=== PATIENT | male | born 1950 | race Caucasian/White ===

== ENCOUNTER 2017-03-23 21:56 | Inpatient (IN) | payer MEDICARE ==
[2017-03-24 00:10] LABS: Comments Flag Yes; Hematocrit 39 % (42-52); Hemoglobin 13.3 g/dl (14.0-18.0); Mean Corpuscular HGB Conc 34 g/dl (31-36); Mean Corpuscular Hemoglobin 32 pg (27-31); Mean Corpuscular Volume 94 fL (80-94); Mean Platelet Volume 8 um3 (7.4-10.4); Red Blood Count 4.21 10^6/ul (4.0-5.4); Red Cell Distribution Width 13 % (10.5-15); White Blood Count 14.5 10^3/ul (3.5-10.8)
[2017-03-24 00:11] LABS: Add Diff/Slide Review? Slide Review Added
[2017-03-24] MEDS ORDERED: ceFAZolin 1 GM ADVAN(*) 1 GM in NS 0.9% 50 ML* 50 ML IVPB ONE (00:16)
--- NOTE | 2017-03-24 00:28 | ED ---
Killian Guido Alfonso, scribed for Shelton Johnson MD on 03/23/17 at 2344 . Lower Extremity - HPI Summary HPI Summary: This patient is a 66 year old M presenting to [facility] accompanied by with a chief complaint of LLE erythema and swelling since 170 this date. Pt is s/p cat scratch at LLE. The CC is described as worsening. Pt rates the pain 5/10 in severity. Symptoms aggravated and alleviated by nothing. Pt reports fever. Denies PMHx of DM. - History of Current Complaint Chief Complaint: EDExtremityLower Stated Complaint: LEFT LEG REDNESS/SWELLING Time Seen by Provider: 03/23/17 23:38 Hx Obtained From: Patient Mechanism Of Injury: Direct Blow - Cat scratch Onset of Pain: Hours - 1700 today Onset/Duration: Worse Since Severity Initially: Moderate Severity Currently: Moderate Pain Intensity: 5 Pain Scale Used: 0-10 Numeric Timing: Constant Location: Is Discrete @ - LLE Associated Signs And Symptoms: Positive: Fever Aggravating Factor(s): Other Alleviating Factor(s): Other - Allergies/Home Medications Allergies/Adverse Reactions: Allergies Allergy/AdvReac Type Severity Reaction Status Date / Time No Known Allergies Allergy Verified 03/23/17 22:07 Home Medications: Home Medications Hydrochlorothiazide TAB* [Hydrodiuril TAB*] 25 mg PO DAILY 03/24/17 [History Confirmed 03/24/17] Lisinopril TAB* [Prinivil TAB*] 20 mg PO DAILY 03/24/17 [History Confirmed 03/24] PMH/Surg Hx/FS Hx/Imm Hx Endocrine/Hematology History: Denies: Hx Diabetes Opthamlomology History: Denies: Hx Legally Blind Infectious Disease History: No Infectious Disease History: Denies: Traveled Outside the [place] in Last 30 Days - Family History Known Family History: Positive: Cardiac Disease - Social History Alcohol Use: None Substance Use Type: Reports: None Smoking Status (MU): Former Smoker Review of Systems Positive: Fever Positive: Other - LLE swelling Positive: Other - LLE erythema All Other Systems Reviewed And Are Negative: Yes Physical Exam Triage Information Reviewed: Yes Vital Signs On Initial Exam: Initial Vitals Temp Pulse Resp BP Pulse Ox 98.6 F 116 20 153/72 95 03/23/17 22:00 03/23/17 22:00 03/23/17 22:00 03/23/17 22:00 03/23/17 22:00 Vital Signs Reviewed: Yes Appearance: Positive: Well-Appearing, No Pain Distress Skin: Positive: Warm, Other - warm erythematous tender lle Head/Face: Positive: Normal Head/Face Inspection Eyes: Positive: ASIF ENT: Positive: Hearing grossly normal Neck: Positive: Supple Respiratory/Lung Sounds: Positive: Breath Sounds Present Cardiovascular: Positive: RRR Abdomen Description: Positive: Nontender, Soft Bowel Sounds: Positive: Present Musculoskeletal: Positive: Strength/ROM Intact Neurological: Positive: Alert, Oriented to Person Place, Time Psychiatric: Positive: Affect/Mood Appropriate - [place] Coma Scale Coma Scale Total: 15 Diagnostics - Vital Signs Vital Signs Temp Pulse Resp BP Pulse Ox 03/23/17 23:32 101.9 F 109 16 139/75 94 03/23/17 22:00 98.6 F 116 20 153/72 95 - Laboratory Result Diagrams: 03/24/17 06:07 03/24/17 06:07 Lab Statement: Any lab studies that have been ordered have been reviewed, and results considered in the medical decision making process. Re-Evaluation - Re-Evaluation First Eval Comment: results d/w pt, case d/w hospitalist Lower Extremity Course/Dx - Course Assessment/Plan: 66 year old M presenting to [facility] accompanied by with a chief complaint of LLE erythema and swelling since 1700 this date. Pt is s/p cat scratch at E. Pt reports fever. Patient given Kefzol 1 GM ADVAN in the ED course. Consulted Dr. Bradshaw (hospitalist) who will see patient in the ED. At 0209 Dr Bradshaw agrees to admit. Patient will be admitted with follow up from Dr. Bradshaw. Pt is agreeable with this plan. - Diagnoses Provider Diagnoses: Cellulitis of left lower extremity - Physician Notifications Discussed Care Of Patient With: Kennedy Bradshaw Time Discussed With Above Provider: 02:00 Instructed by Provider To: Other - Consulted Dr. Bradshaw (hospitalist) who will see patient in the ED. At 0209 Dr Bradshaw agrees to admit. Discharge - Discharge Plan Condition: Stable Disposition: ADMITTED TO [facility] documentation as recorded by the Killian morris Alfonso accurately reflects the service I personally performed and the decisions made by , Shelton Johnson MD.
[2017-03-24 00:29] LABS: Albumin 3.8 g/dL (3.2-5.2); BUN/Creatinine Ratio 20.8 (8-20); C Reactive Protein 32.32 mg/L (< 5.00); Calcium 9.4 mg/dL (8.6-10.3); EGFR African American 94.5 (>60); EGFR Non-African American 73.5 (>60); Globulin 3.2 g/dL (2-4); Magnesium 1.7 mg/dL (1.9-2.7); Potassium 3.5 mmol/L (3.5-5.0); Total Bilirubin 0.8 mg/dL (0.2-1.0)
[2017-03-24 00:38] LABS: Immature Granulocytes 22 % (0-9); Neutrophil % 74 % (38-83); RBC Morphology Normal (Normal)
[2017-03-24] MEDS ORDERED: Magnesium Sulfate 2 GM IV* 2 GM/50 ML BAG IVPB ONE ×2 (02:12→07:45)
[2017-03-24] MEDS ORDERED: Albuterol 2.5 MG/3 ML NEB.SOL* (0.083%) INH PRN (02:14)
[2017-03-24] MEDS ORDERED: CMCS: Melatonin (NF) 3 MG TAB PO PRN (02:14)
[2017-03-24] MEDS ORDERED: Acetaminophen TAB* 325 MG PO PRN (02:14)
[2017-03-24] MEDS ORDERED: oxyCODONE TAB* 5 MG TAB PO PRN (02:15)
[2017-03-24] MEDS ORDERED: Ondansetron INJ* 2 MG/ML VIAL IV PRN (02:15)
[2017-03-24] MEDS: NS 0.9% 1000 ML* 1,000 ML IV SCH ×4 (03:25→14:34)
[2017-03-24] MEDS: Omeprazole CAP* 20 MG PO SCH (05:28)
[2017-03-24 06:16] LABS: Hematocrit 35 % (42-52); Hemoglobin 11.6 g/dl (14.0-18.0); Mean Corpuscular HGB Conc 34 g/dl (31-36); Mean Corpuscular Hemoglobin 32 pg (27-31); Mean Corpuscular Volume 95 fL (80-94); Mean Platelet Volume 8 um3 (7.4-10.4); Red Blood Count 3.67 10^6/ul (4.0-5.4); Red Cell Distribution Width 13 % (10.5-15); White Blood Count 15.4 10^3/ul (3.5-10.8)
[2017-03-24 06:30] LABS: BUN/Creatinine Ratio 18.9 (8-20); Calcium 8.1 mg/dL (8.6-10.3); EGFR African American 101.4 (>60); EGFR Non-African American 78.8 (>60); Magnesium 1.8 mg/dL (1.9-2.7); Potassium 3.6 mmol/L (3.5-5.0)
--- NOTE | 2017-03-24 07:08 | HP ---
H&P (Free Text) History and Physical: PCP: AMARI Baker Date/Time of Evaluation: 03/24/2017 0210 CC: LLE pain, swelling, & redness HPI: Mr Victoria is a 66YO male HX HTN whose cat scratched his posterior L calf ~1 week ago which turned red and drained clear fluid for a day or two before looking better. This AM his leg was normal before driving 2 hours to look at a machine boss, but upon arrival had become painful, red, and swollen. He had also developed nausea, subjective F/C, light-headedness, and fatigue with a light diffuse headache. He denies chest pain, palpitations, cough, congestion, SOB, abdominal pain, or other issues. The redness rapidly over the next couple of hours progressed to just distal of the knee prompting him to present for evaluation. PMedHx HTN renal stones OA knee Ambulatory Orders Hydrochlorothiazide TAB* [Hydrodiuril TAB*] 25 mg PO DAILY 03/24/17 Lisinopril TAB* [Prinivil TAB*] 20 mg PO DAILY 03/24/17 Allergies No Known Allergies Allergy (Verified 03/23/17 22:07) PSurgHx lumbar surgery SocHx: quit smoking ~15years ago, no alcohol or recreational drugs; lives with his ; retired insurance sales assistant; full code status FamHx: Mother passed of PCP pneumonia w/o a diagnosis of HIV/AIDS. Father had CAD, passing away of HIV/AIDS contracted from a blood transfusion. ROS: as above, otherwise reviewed and all were negative Constitutional: NAD, normally developed, obese white male vitals: Vital Signs Temp 37.8 C 03/24/17 03:48 Pulse 105 03/24/17 03:48 Resp 16 03/24/17 03:48 BP 145/77 03/24/17 03:48 Pulse Ox 98 03/24/17 03:48 Intake & Output 03/23/17 03/23/17 03/24/17 11:59 23:59 11:59 Intake Total 2109 Balance 2109 Weight 96.162 kg 107.048 kg Intake: IV Fluids 2109 ABX - ZOSYN 110 NS (0.9%) 2000 Oral 0 Other: # Voids 0 HEENM: atraumatic; sclera/conjunctiva: non-icteric/clear; hearing: clinically intact; oropharynx: clear, mucosa tacky Neck: soft tissue: no nuchal rigidity; thyroid: normal Pulmonary: clear to auscultation bilaterally, good aeration, no accessory muscle use CV: RR/RR, normal S1S2, no carotid bruit, no jugular venous distention, 2+ B DP/ PT, no edema Abdominal: soft, non-distended, non-tender, no rebound/guarding/rigidity, normoactive bowel sounds, no hepatosplenomegaly or masses, no costovertebral angle tenderness Musculoskeletal: general: grossly intact; gait: too ill to ambulate Integumental: LLE distal 2/3 calf w/ circumferential erythema, warmth, tenderness, & swelling w/o palpable cords; Alexandra negative Psychiatric orientation: AA&O to PPS affect: calm mood: cooperative eye contact: good content: reliable responses: timely insight: good Testing: Lab Results 03/24/17 03/24/17 03/24/17 Range/Units 00:01 00:01 00:01 WBC 14.5 H (3.5-10.8) 10^3/ul RBC 4.21 (4.0-5.4) 10^6/ul Hgb 13.3 L (14.0-18.0) g/dl Hct 39 L (42-52) % MCV 94 (80-94) fL MCH 32 H (27-31) pg MCHC 34 (31-36) g/dl RDW 13 (10.5-15) % Plt Count 193 (150-450) 10^3/ul MPV 8 (7.4-10.4) um3 Immature Gran % (Auto) 22 H (0-9) % Neut % (Auto) 89.1 H (38-83) % Lymph % (Auto) 3.8 L (25-47) % Greenlee % (Auto) 6.5 (1-9) % Eos % (Auto) 0 (0-6) % Baso % (Auto) 0.6 (0-2) % Absolute Neuts (auto) 13.0 H (1.5-7.7) 10^3/ul Absolute Lymphs (auto) 0.5 L (1.0-4.8) 10^3/ul Absolute Monos (auto) 0.9 H (0-0.8) 10^3/ul Absolute Eos (auto) 0 (0-0.6) 10^3/ul Absolute Basos (auto) 0.1 (0-0.2) 10^3/ul Absolute Nucleated RBC 0 10^3/ul Neutrophils % 74 (38-83) % Band Neutrophils % 22 H (0-8) % Lymphocytes % 2 L (25-47) % Monocytes % 2 (0-13) % Nucleated RBC % 0 Normal RBC Morphology Normal (Normal) Sodium 133 (133-145) mmol/L Potassium 3.5 (3.5-5.0) mmol/L Chloride 99 L (101-111) mmol/L Carbon Dioxide 25 (22-32) mmol/L Anion Gap 9 (2-11) mmol/L BUN 21 (6-24) mg/dL Creatinine 1.01 (0.67-1.17) mg/dL Est GFR ( Amer) 94.5 (>60) Est GFR (Non-Af Amer) 73.5 (>60) BUN/Creatinine Ratio 20.8 H (8-20) Glucose 104 H (70-100) mg/dL Lactic Acid 2.1 H* (0.5-2.0) mmol/L Calcium 9.4 (8.6-10.3) mg/dL Magnesium 1.7 L (1.9-2.7) mg/dL Total Bilirubin 0.80 (0.2-1.0) mg/dL AST 21 (13-39) U/L ALT 18 (7-52) U/L Alkaline Phosphatase 78 (34-104) U/L C-Reactive Protein 32.32 H (< 5.00) mg/L Total Protein 7.0 (6.4-8.9) g/dL Albumin 3.8 (3.2-5.2) g/dL Globulin 3.2 (2-4) g/dL Albumin/Globulin Ratio 1.2 (1-3) 03/24/17 03/24/17 03/24/17 Range/Units 06:07 06:07 06:07 WBC 15.4 H (3.5-10.8) 10^3/ul RBC 3.67 L (4.0-5.4) 10^6/ul Hgb 11.6 L (14.0-18.0) g/dl Hct 35 L (42-52) % MCV 95 H (80-94) fL MCH 32 H (27-31) pg MCHC 34 (31-36) g/dl RDW 13 (10.5-15) % Plt Count 185 (150-450) 10^3/ul MPV 8 (7.4-10.4) um3 Immature Gran % (Auto) (0-9) % Neut % (Auto) 90.3 H (38-83) % Lymph % (Auto) 4.5 L (25-47) % Greenlee % (Auto) 4.7 (1-9) % Eos % (Auto) 0 (0-6) % Baso % (Auto) 0.5 (0-2) % Absolute Neuts (auto) 13.9 H (1.5-7.7) 10^3/ul Absolute Lymphs (auto) 0.7 L (1.0-4.8) 10^3/ul Absolute Monos (auto) 0.7 (0-0.8) 10^3/ul Absolute Eos (auto) 0 (0-0.6) 10^3/ul Absolute Basos (auto) 0.1 (0-0.2) 10^3/ul Absolute Nucleated RBC 0 10^3/ul Neutrophils % (38-83) % Band Neutrophils % (0-8) % Lymphocytes % (25-47) % Monocytes % (0-13) % Nucleated RBC % 0 Normal RBC Morphology (Normal) Sodium 134 (133-145) mmol/L Potassium 3.6 (3.5-5.0) mmol/L Chloride 102 (101-111) mmol/L Carbon Dioxide 24 (22-32) mmol/L Anion Gap 8 (2-11) mmol/L BUN 18 (6-24) mg/dL Creatinine 0.95 (0.67-1.17) mg/dL Est GFR ( Amer) 101.4 (>60) Est GFR (Non-Af Amer) 78.8 (>60) BUN/Creatinine Ratio 18.9 (8-20) Glucose 142 H (70-100) mg/dL Lactic Acid 1.8 (0.5-2.0) mmol/L Calcium 8.1 L (8.6-10.3) mg/dL Magnesium 1.8 L (1.9-2.7) mg/dL Total Bilirubin (0.2-1.0) mg/dL AST (13-39) U/L ALT (7-52) U/L Alkaline Phosphatase (34-104) U/L C-Reactive Protein (< 5.00) mg/L Total Protein (6.4-8.9) g/dL Albumin (3.2-5.2) g/dL Globulin (2-4) g/dL Albumin/Globulin Ratio (1-3) Impression: 66M presenting with sepsis 2nd LLE cellulitis DIAGNOSIS & PLAN Primary sepsis 2nd LLE cellulitis : IV piperacillin/tazobactam to cover for B henselae : blood & urine CXs : IVFs : supportive care Secondary HTN : continue lisinopril & HCTZ Admission Rational: inpatient for sepsis requiring IVFs & IV ABX; inappropriate for outpatient setting DVTp: heparin SQ & SCDs Code Status: full HCP:
[2017-03-24] MEDS ORDERED: ZOSYN 3.375 GM Q8H per EXTENDED INFUSION IVPB SCH ×2 (07:30)
[2017-03-24] MEDS: Docusate CAP* 100 MG PO SCH ×2 (07:51→21:46)
[2017-03-24] MEDS ORDERED: PROCHLORPERAZINE INJ 5 MG/ML 2 ML VIAL IV PRN (09:08)
--- NOTE | 2017-03-24 09:10 | PN ---
Subjective Date of Service: 03/24/17 Interval History: HOSPITALIST PROGRESS NOTE Patient seen and examined at bedside. He feels like he's been "hit by a truck", very fatigued, but a little better than yesterday. He thinks LLE erythema is subsiding. Family History: Unchanged from Admission Social History: Unchanged from Admission Past Medical History: Unchanged from Admission Objective Active Medications: Acetaminophen (Tylenol Tab*) 650 mg PO Q6H PRN PRN Reason: FEVER/PAIN Albuterol (Ventolin 2.5 Mg/3 Ml Neb.Pascale*) 2.5 mg INH Q2H PRN PRN Reason: SOB/WHEEZING Docusate Sodium (Colace Cap*) 200 mg PO BID [facility] Last Admin: 03/24/17 07:51 Dose: 200 mg Heparin Sodium (Porcine) (Heparin Vial(*)) 5,000 units SUBCUT Q8HR [facility] Sodium Chloride (Ns 0.9% 1000 Ml*) 1,000 mls @ 125 mls/hr IV PER RATE [facility] Last Admin: 03/24/17 04:45 Dose: 125 mls/hr Sodium Chloride (Ns 0.9% 1000 Ml*) 1,000 mls @ 0 mls/hr IV WIDE OPEN [facility] PRN Reason: Wide Open Stop: 03/25/17 02:16 Last Admin: 03/24/17 03:30 Dose: 990 mls/hr Piperacillin Sod/Tazobactam (Sod 3.375 gm/ Sodium Chloride) 100 mls @ 25 mls/ hr IVPB Q8H [facility] Last Admin: 03/24/17 07:50 Dose: 25 mls/hr Azithromycin 500 mg/ Sodium (Chloride) 250 mls @ 250 mls/hr IVPB Q24H [facility] Melatonin (Melatonin (Nf)) 3 mg PO BEDTIME PRN; Protocol PRN Reason: Sleep Omeprazole (Prilosec Cap*) 20 mg PO DAILY@0600 [facility] Last Admin: 03/24/17 05:28 Dose: 20 mg Oxycodone HCl (Roxycodone Tab*) 5 mg PO Q4H PRN PRN Reason: PAIN Prochlorperazine Edisylate (Compazine Inj*) 5 mg IV Q6H PRN PRN Reason: NAUSEA/VOMITING Vital Signs 03/24/17 03/24/17 03/24/17 02:42 03:03 03:48 Temperature 100.0 F 100.7 F 100.0 F Pulse Rate 105 105 Respiratory 16 16 Rate Blood Pressure 145/77 145/77 (mmHg) O2 Sat by Pulse 98 98 Oximetry 03/24/17 03/24/17 07:32 08:21 Temperature 100.0 F Pulse Rate 95 Respiratory 20 20 Rate Blood Pressure 139/67 (mmHg) O2 Sat by Pulse 96 Oximetry Oxygen Devices in Use Now: None Appearance: Pleasant elderly gentleman lying in bed in NAD. Eyes: No Scleral Icterus Ears/Nose/Mouth/Throat: Mucous Membranes Moist Neck: Trachea Midline Respiratory: Symmetrical Chest Expansion and Respiratory Effort, Clear to Auscultation Cardiovascular: RRR - Normal S1 and S2 Abdominal: NL Sounds; No Tenderness; No Distention - obese Extremities: - - Left LE edema and erythema, small scratch area on the posterior aspect of left calf Neurological: Alert and Oriented x 3, NL Muscle Strength and Tone Lines/Tubes/Other Access: Clean, Dry and Intact Peripheral IV Nutrition: Taking PO's Result Diagrams: 03/24/17 06:07 03/24/17 06:07 Assess/Plan/Problems-Billing Assessment: Mr. Victoria is a 66yo M with PMH of HTN, nephrolithiasis, who presented to ED with c/o fever, LLE pain and redness, found to have cellulitis. - Patient Problems (1) Sepsis Comment: - Patient met sepsis criteria on admission with fever, leukocytosis. - Source is cellulitis. (2) Cellulitis Comment: - Started with cat scratch. Will request ID input re: need to cover B. henselae. - Continue Zosyn for now. - Check A1c. (3) HTN (hypertension) Comment: - Lisinopril and HCTZ on hold for now. - Monitor BP. (4) DVT prophylaxis Comment: - SQ heparin. (5) Full code status Status and Disposition: Inpatient.
[2017-03-24] MEDS ORDERED: Azithromycin IV(*) 500 MG in NS 0.9% 250 ML* 250 ML IVPB SCH (10:00)
[2017-03-24] MEDS: ceFAZolin 1 GM ADVAN(*) 1 GM in NS 0.9% 50 ML* 50 ML IVPB SCH ×2 (13:29→21:46)
--- NOTE | 2017-03-24 16:35 | CONS ---
CONSULTATION REPORT: DATE OF CONSULT: 03/24/17 REQUESTING PHYSICIAN: Dr. Obrien. CONSULTING SERVICE: Infectious Disease. REASON FOR CONSULTATION: Cellulitis of the left leg. IMPRESSION: 1. Left lower extremity cellulitis, which has slightly improved since being here overnight, portal of entry is likely the wound for a cat scratch. I think the bacteria is most likely skin rashawn, including streptococcus. 2. Obesity. 3. Hypertension. RECOMMENDATIONS: Changed Zosyn to Ancef. We will follow his progress and if he is continuing to make significant improvement, can change the Keflex 500 mg by mouth 3 times daily for another 10 days and follow up with PCP in his area. HISTORY OF PRESENT ILLNESS: This is a 66-year-old male with cat scratch about a week ago, had drained some clear fluid. The scratch was to the posterior left lower leg, the claw got stuck in there for a minute and took a lot of work to get it out. Yesterday he had the onset of right leg pain, swelling, and warmth. Worse with weightbearing. No pain in his ankle or knee. He was driving from [place] to [place], pulled in here on the way. Last night white count [address]1402, this morning was [id number]. He was started on Zosyn overnight. He had a fever at 38.8 on arrival. This morning the leg feel less swollen, warm , and red, less painful when he is walking around. He has not had an infection like this in the past and had never been diagnosed with diabetes. Last tetanus shot was about an year ago. PAST MEDICAL HISTORY: 1. Hypertension. 2. Osteoarthritis. MEDICATIONS: 1. Tylenol. 2. Albuterol. 3. Docusate. 4. Heparin subcutaneous injection. 5. Zosyn 3.375 g every 8 hours by infusion. 6. Melatonin. 7. Azithromycin. ALLERGIES: No known drug allergies. FAMILY HISTORY: No recurrent infections. SOCIAL HISTORY: He lives in [place]. No travel or sick contact. REVIEW OF SYSTEMS: All negative except as noted above in the history of present illness. PHYSICAL EXAM: Vital Signs: Temperature is 37, heart rate 90, respiratory rate 20, blood pressure 106/55, O2 sat 99% on room air. General: He is awake, not in distress. HEENT: There is no conjunctival hemorrhage. Oropharynx without lesions. Neck: Supple without nuchal rigidity. Lymph Nodes: There is no cervical, supraclavicular, inguinal, axillary, or epitrochlear lymphadenopathy. Heart: Regular rate and rhythm without murmurs, rubs, or gallops. Lungs: Clear to auscultation bilaterally. Abdomen: Soft, nontender , and nondistended. There are bowel sounds present. Skin: There is in the left lower extremity diffuse, mild, nonblanching erythema without crepitus or fluctuance; it is from below the knee to above the ankle. There is a 3 mm eschar a few inches above that. Musculoskeletal: No spinal tenderness to palpation or joint synovitis. DIAGNOSTIC STUDIES/LABORATORY DATA: Creatinine 0.9. CRP 30. White blood cell count 15, hemoglobin 11, and platelets 185. Please see impression and recommendations outlined above, which I have discussed with Dr. Obrien. Thanks for asking me to see Mr. Victoria in consultation. [id number]/CPS #: [id number] MTDD
[2017-03-24] MEDS: Fluticasone NASAL SPRAY 50MCG* 16 gm SPRAY BTL BOTH NARES SCH (22:58)
[2017-03-25] MEDS: Omeprazole CAP* 20 MG PO SCH (05:43)
[2017-03-25] MEDS: ceFAZolin 1 GM ADVAN(*) 1 GM in NS 0.9% 50 ML* 50 ML IVPB SCH ×3 (05:43→21:45)
[2017-03-25] MEDS: Heparin VIAL(*) 5000 UNITS/ML VIAL (FIVE THOUSAND) SUBCUT SCH ×3 (05:44→21:45)
[2017-03-25 06:28] LABS: Hematocrit 33 % (42-52); Hemoglobin 11.1 g/dl (14.0-18.0); Mean Corpuscular HGB Conc 34 g/dl (31-36); Mean Corpuscular Hemoglobin 32 pg (27-31); Mean Corpuscular Volume 94 fL (80-94); Mean Platelet Volume 8 um3 (7.4-10.4); Red Cell Distribution Width 13 % (10.5-15); White Blood Count 11.7 10^3/ul (3.5-10.8)
[2017-03-25 06:47] LABS: BUN/Creatinine Ratio 17.4 (8-20); Calcium 8.1 mg/dL (8.6-10.3); EGFR African American 105.2 (>60); EGFR Non-African American 81.8 (>60); Potassium 3.8 mmol/L (3.5-5.0)
[2017-03-25] MEDS: Docusate CAP* 100 MG PO SCH ×2 (08:19→21:46)
[2017-03-25] MEDS: Fluticasone NASAL SPRAY 50MCG* 16 gm SPRAY BTL BOTH NARES SCH (08:20)
--- NOTE | 2017-03-25 12:30 | PN ---
Subjective Date of Service: 03/25/17 Interval History: HOSPITALIST PROGRESS NOTE Patient seen and examined at bedside. He feels a little better today. Still has some body aches, but less intense. Has LLE pain when ambulating, but mild. Still had low grade fever last night. Family History: Unchanged from Admission Social History: Unchanged from Admission Past Medical History: Unchanged from Admission Objective Active Medications: Acetaminophen (Tylenol Tab*) 650 mg PO Q6H PRN PRN Reason: FEVER/PAIN Albuterol (Ventolin 2.5 Mg/3 Ml Neb.Pascale*) 2.5 mg INH Q2H PRN PRN Reason: SOB/WHEEZING Docusate Sodium (Colace Cap*) 200 mg PO BID [facility] Last Admin: 03/25/17 08:19 Dose: 200 mg Fluticasone Propionate (Flonase Nasal Elmo 50mcg*) 2 spray BOTH NARES DAILY [facility] Last Admin: 03/25/17 08:20 Dose: 2 spray Heparin Sodium (Porcine) (Heparin Vial(*)) 5,000 units SUBCUT Q8HR [facility] Last Admin: 03/25/17 05:44 Dose: 5,000 units Cefazolin Sodium 1 gm/ Sodium (Chloride) 50 mls @ 200 mls/hr IVPB Q8H [facility] Last Admin: 03/25/17 05:43 Dose: 200 mls/hr Melatonin (Melatonin (Nf)) 3 mg PO BEDTIME PRN; Protocol PRN Reason: Sleep Omeprazole (Prilosec Cap*) 20 mg PO DAILY@0600 [facility] Last Admin: 03/25/17 05:43 Dose: 20 mg Oxycodone HCl (Roxycodone Tab*) 5 mg PO Q4H PRN PRN Reason: PAIN Prochlorperazine Edisylate (Compazine Inj*) 5 mg IV Q6H PRN PRN Reason: NAUSEA/VOMITING Vital Signs 03/25/17 08:06 Temperature 99.1 F Pulse Rate 102 Respiratory 16 Rate Blood Pressure 118/56 (mmHg) O2 Sat by Pulse 95 Oximetry Oxygen Devices in Use Now: None Appearance: Pleasant gentleman sitting up in bed in NAD. Eyes: No Scleral Icterus Ears/Nose/Mouth/Throat: Mucous Membranes Moist Neck: Trachea Midline Respiratory: Symmetrical Chest Expansion and Respiratory Effort, Clear to Auscultation Cardiovascular: RRR - Normal S1 and S2 Abdominal: NL Sounds; No Tenderness; No Distention Extremities: - - LLE edema and erythema, less intense than yesterday Neurological: Alert and Oriented x 3, NL Muscle Strength and Tone Lines/Tubes/Other Access: Clean, Dry and Intact Peripheral IV Nutrition: Taking PO's Result Diagrams: 03/25/17 06:11 03/25/17 06:11 Assess/Plan/Problems-Billing Assessment: Mr. Victoria is a 66yo M with PMH of HTN, nephrolithiasis, who presented to ED with c/o fever, LLE pain and redness, found to have cellulitis. - Patient Problems (1) Sepsis Comment: - Patient met sepsis criteria on admission with fever, leukocytosis. - Source is cellulitis. (2) Cellulitis Comment: - Started with cat scratch. - ID input appreciated - feels this is streptococcal cellulitis and recommended treatment with Cefazolin IV + 10 days PO Cephalexin. - LE doppler negative for DVT. (3) HTN (hypertension) Comment: - Lisinopril and HCTZ on hold for now. - Monitor BP. (4) DVT prophylaxis Comment: - SQ heparin. (5) Full code status Status and Disposition: Inpatient. Anticipate d/c in AM if he remains afebrile.
[2017-03-25] MEDS ORDERED: Docusate CAP* 100 MG ONE (21:50)
[2017-03-26] MEDS: ceFAZolin 1 GM ADVAN(*) 1 GM in NS 0.9% 50 ML* 50 ML IVPB SCH (04:52)
[2017-03-26] MEDS: Omeprazole CAP* 20 MG PO SCH (07:25)
[2017-03-26] MEDS: Heparin VIAL(*) 5000 UNITS/ML VIAL (FIVE THOUSAND) SUBCUT SCH (07:26)
[2017-03-26] MEDS: Fluticasone NASAL SPRAY 50MCG* 16 gm SPRAY BTL BOTH NARES SCH (07:47)
[2017-03-26] MEDS: Docusate CAP* 100 MG PO SCH (07:48)
[2017-03-26] MEDS ORDERED: Lisinopril TAB* 10 MG PO SCH (10:00)
[2017-03-26] MEDS ORDERED: Hydrochlorothiazide TAB* 25 MG PO SCH (10:00)
[2017-03-26 11:26] VITALS: BP 155/84
--- NOTE | 2017-03-27 08:51 | DS ---
CC: PRESLEY Mcdermott, Olive Mariano, phone# [phone]; Dr. Sergio Quan, [facility], phone# [phone] DISCHARGE SUMMARY: DATE OF ADMISSION: 03/24/17 DATE OF DISCHARGE: 03/26/17 PRIMARY CARE PROVIDER: PRESLEY Mcdermott, Olive Mariano, phone# [phone]. POSSIBLE NEW PRIMARY CARE PROVIDER: Dr. Sergio Quan, [facility], phone# [phone]. DISCHARGE DIAGNOSES: 1. Sepsis. 2. Left lower extremity cellulitis, likely streptococcal. 3. Leukocytosis with bandemia. 4. Mild lactic acidosis. 5. Mild anemia. SECONDARY DIAGNOSES: 1. Hypertension. 2. Nephrolithiasis. 3. Obesity. MEDICATION LIST: Fluticasone nasal spray 100 mcg to each nostril in the morning. The patient states that he was taking lisinopril and hydrochlorothiazide as needed at home usually j ust once a week, so those medications were discontinued for now. New Medications: 1. Cephalexin 500 mg p.o. t.i.d. for 10 more days. 2. Acetaminophen 650 mg p.o. q. 6 hours as needed for pain or fever. HOSPITAL COURSE: Mr. Victoria is a 66-year-old male with a past medical history as stated above that wa s scratched by his cat one week prior to admission. He states that he took care of the scratch and initially saw no changes to his leg, but the day prior to admission he noticed left lower extremity swelling, erythema, and while driving, he developed fever, chills, nausea, and vomiting, and present ed to the emergency room for further evaluation. For more details about his presentation, I refer y ou to his history and physical. The patient was found to have leukocytosis with a white cell count of 14,000 with left shift with 89 % neutrophils and 22% bands. He was admitted for further evaluation. Lower extremity Doppler was negative for DVT. The patient was seen in consultation by infectious disease (Dr. Andino) and his impression was chetna t the patient likely had streptococcal cellulitis and the portal of entry was likely the wound from a cat scratch. His recommendation was to treat the patient with Ancef while in the hospital and to change him to cephalexin 500 mg t.i.d. for 10 days more on discharge. The patient's blood cultures showed no growth. His MRSA screen was negative. He had progressive improvement of his symptoms, became afebrile. His leukocytosis improved and he f elt ready to be discharged home. Hemoglobin A1c was checked and it was 5.6. He did have some hyperglycemia up to 140s while in the h ospital, but this was likely secondary to infection. The patient was also found to be slightly anemic with H and H of . Anemia workup was not perfo rmed at this time due to his infection/inflammation that will likely over read his ferritin level, b ut he should have an anemia workup as outpatient, especially considering that he is 66 and has never had a colonoscopy. The patient also has a history of venous insufficiency especially on his right leg. After his infect ion is treated, he may benefit from an evaluation at a lymphedema clinic and also evaluation by a va scular surgeon could be considered, but I think the lymphedema clinic would be more helpful at this point. The patient is medically stable for discharge. PHYSICAL EXAMINATION: Vital signs: Temperature 98.5, heart rate is 97, respiratory 16, oxygen satu ration 97% on room air, blood pressure is 155/84. General: The patient is a pleasant, obese male si tting up in bed in no acute distress. CVS: Normal S1, S2. Regular rate and rhythm. Chest: Breat h sounds present bilaterally with no added sounds. Abdomen: Obese. Bowel sounds present. Extremit ies: There is mild edema to the left leg. Erythema is much improved. Neuro: He is alert, awake, a nd oriented x3. Able to move all 4 extremities. DIET: Low-salt diet. ACTIVITIES: As tolerated. DISPOSITION: To home. STATUS WHILE IN HOSPITAL: Inpatient. The patient was advised to measure his blood pressure 3 times a week at home and take his numbers to his PCP. As he states that he will measure his blood pressure at home and take the lisinopril and hydrochlorothiazide just once a week and sometimes when took the medication, he would feel lighthead ed, so maybe he would benefit from a lower dose of the medication or actually in fact, he does not n eed medication at all. So at this point, those two medications were discontinued. Please keep in mind that this is a summarized version of this patient's hospital stay. If you need more information, please feel free to call me at [phone] or please obtain full medical records. TIME SPENT: Approximately 45 minutes was spent to complete this discharge. [id number]/[facility] #: [id number]
--- NOTE | 2017-03-28 14:42 | RAD ---
INDICATION: LEFT lower extremity pain and edema. Cellulitis. COMPARISON: No relevant prior exams available on the [facility] PACS for comparison. TECHNIQUE: Blackburn scale, color Doppler, and spectral analysis of the deep veins of the LEFT lower extremity. Vessel compression, phasicity, and augmentation assessed. REPORT: The LEFT common femoral, great saphenous, profunda femoral, duplicated femoral, duplicated popliteal, peroneal, and posterior tibial veins are patent. LEFT lower leg subcutaneous edema noted. Patency of the RIGHT common femoral vein documented. IMPRESSION: No evidence for LEFT lower extremity deep venous thrombosis.
== END 2017-03-26 12:30 | disposition home or self-care (01) | DRG 872 ==
LOC: SUPCPDRO 21:56 → ED 21:56 → MED 03-24 02:07
PROVIDERS: ADMIT Hospitalist; ATTEND Internal Medicine
DX: A41.9 Sepsis, unspecified organism (principal); E87.2 Acidosis; L03.116 Cellulitis of left lower limb; B95.5 Unspecified streptococcus as the cause of diseases classified elsewhere; S80.812A Abrasion, left lower leg, initial encounter; D64.9 Anemia, unspecified; I10 Essential (primary) hypertension; N20.0 Calculus of kidney; M17.10 Unilateral primary osteoarthritis, unspecified knee; E66.9 Obesity, unspecified; W55.03XA Scratched by cat, initial encounter; Y92.9 Unspecified place or not applicable; Z68.34 Body mass index [BMI] 34.0-34.9, adult; Z87.891 Personal history of nicotine dependence; Z82.49 Family history of ischemic heart disease and other diseases of the circulatory system; Z83.0 Family history of human immunodeficiency virus [HIV] disease; Z79.899 Other long term (current) drug therapy
CPT/HCPCS: 36415; 80048; 80053; 83036; 83605; 83735; 85025; 86140; 87040; 87077; 87150; 87205; 87641; A9270-GY; J0456; J0690; J1644; J2543; J3475